=== PATIENT | male | born 1980 | race Caucasian/White ===

== ENCOUNTER 2017-06-06 14:57 | Emergency (ER) | payer OTHER ==
[2017-06-06] MEDS ORDERED: TDAP ADULT 0.5 ML INJ (BOOSTRIX) IM ONE (15:16)
[2017-06-06] MEDS ORDERED: CEPHALEXIN 500 MG CAP PO ONE (15:16)
--- NOTE | 2017-06-06 15:21 | EDPHY ---
H & P Time Seen by Provider: 06/06/17 15:11 HPI/ROS: CHIEF COMPLAINT: Right elbow laceration post skiing HISTORY OF PRESENT ILLNESS: 37-year-old male was skiing earlier today, fell impacting his right proximal forearm and elbow against a rock sustaining laceration. Did not rip his jacket. No distal paresthesia sensory or motor deficit. He is tender to palpation right elbow. Tetanus out-of-date. PHYSICAL EXAM (Prior to examination, patient consented to physical exam, hands were washed and my usual and customary physical exam procedures followed) 1) GENERAL: Well-developed, well-nourished, alert and oriented. Appears to be in no acute distress. 2) HEAD: Normocephalic 3) HEENT: sclera anicteric 4) LUNGS: Breathing comfortably. 5) SKIN: Right proximal forearm ulnar aspect 4 cm well-demarcated laceration not involving the muscle fascia. 6) MUSCULOSKELETAL: flexion extension pronation supination intact no deficits.. Soft compartments. Proximally distally nontender. 7) NEUROLOGIC:Radial ulnar median nerve function intact distally. Smoking Status: Never smoked Constitutional: Initial Vital Signs Temperature (C) 36.7 C 06/06/17 15:07 Heart Rate 67 06/06/17 15:07 Respiratory Rate 16 06/06/17 15:07 Blood Pressure 131/92 H 06/06/17 15:07 O2 Sat (%) 97 06/06/17 15:07 O2 Delivery Mode Room Air Allergies/Adverse Reactions: Penicillins Allergy (Verified 06/06/17 15:07) Home Medications: Medication Instructions Recorded Cephalexin [Keflex] 500 mg PO TID 5 Days cap 06/06/17 MDM/Departure - MDM Imaging Results: Imaging Impressions Elbow X-Ray 06/06/17 15:16 Impression: Laceration. No bone or joint abnormality identified. Procedures: Procedure: Laceration repair. I explained the indications, risks and benefits for both laceration repair and anesthetic administration. Verbal consent was obtained from the patient. The laceration on the right forearm was anesthetized using 0.5% bupivicaine with epinephrine. After anesthetic administered the patient was observed for a period of time and had no apparent adverse effects. The wound was cleaned, prepped, draped in normal sterile fashion and explored to its base. No foreign body seen, no foreign bodies palpated. There were no deep structures involved. The wound was repaired with 12 simple interrupted 4 0 Prolene sutures. The wound repair was complex. The procedure was performed by myself. Patient has been informed that scarring will occur, although efforts have been made to minimize this. Medications Given: Discontinued Medications Cephalexin HCl (Keflex) 500 mg PO EDNOW ONE PRN Reason: Protocol Stop: 06/06/17 15:17 Last Admin: 06/06/17 15:30 Dose: 500 mg Diphtheria/Tetanus/Acell Pertussis (Boostrix) 0.5 ml IM .ONCE ONE Stop: 06/06/17 15:17 Last Admin: 06/06/17 15:31 Dose: 0.5 ml ED Course/Re-evaluation: Patient is neurovascularly intact. Wound has been closed, started on prophylactic antibiotics, compartments soft with no evidence of compartment syndrome.. Care of patient under supervision of secondary supervising physician Dr Pearson . - Depart Disposition: Home, Routine, Self-Care Clinical Impression: Laceration of right forearm Qualifiers: Encounter type: initial encounter Qualified Code(s): S51.811A - Laceration without foreign body of right forearm, initial encounter Skiing accident Qualifiers: Encounter type: initial encounter Qualified Code(s): V00.328A - Other snow-ski accident, initial encounter Condition: Good Instructions: Care For Your Stitches (ED), Laceration (ED) Additional Instructions: Return to the ER if you develop redness, swelling, discharge, warmth to the wound, red streaks going up your arm or any other symptoms that concern you. Prescriptions: Cephalexin [Keflex] 500 mg PO TID 5 Days cap Referrals: Return, to the ER in 10-14 days for suture removal [Other] - As per Instructions
[2017-06-06 16:18] VITALS: BP 121/75; PULSE 71; RESP 15; TEMP 98.2; O2SAT 97
== END 2017-06-22 17:48 | disposition home or self-care (01) ==
PROC: 0HQDXZZ Repair Right Lower Arm Skin, External Approach (ICD-10-PCS; principal; 2017-06-06)
DX: S51.811A Laceration without foreign body of right forearm, initial encounter (principal); Z23 Encounter for immunization; V00.328A Other snow-ski accident, initial encounter; Y99.8 Other external cause status; Y93.23 Activity, snow (alpine) (downhill) skiing, snowboarding, sledding, tobogganing and snow tubing